=== PATIENT | male | born 1995 | race African-American/Black ===

== ENCOUNTER 2017-11-23 09:55 | Outpatient (CLI) | payer OTHER ==
[2017-11-23 10:55] LABS: eGFR (African) > 60; eGFR (Non-African) > 60
== END 2017-11-23 09:56 ==
LOC: LAB 09:55
PROVIDERS: ATTEND Physician Assistant
DX: Z00.00 Encounter for general adult medical examination without abnormal findings (principal); Z13.6 Encounter for screening for cardiovascular disorders; Z11.3 Encounter for screening for infections with a predominantly sexual mode of transmission
CPT/HCPCS: 36415; 80053; 80061; 86703; 87491; 87591